=== PATIENT | male | born 1940 | race Caucasian/White ===

== ENCOUNTER 2018-06-04 11:13 | Outpatient (CLI) | payer MEDICARE ==
--- NOTE | 2018-06-04 15:30 | XRAY Report ---
Reason: RT SHOULDER IMPINGEMENT,CERVICAL RADICULOPATHY Procedure Date: 06/04/2018 Accession Number: [id number] / [id number] Procedure: XR - Clavicle RT CPT Code: FULL RESULT: EXAM: RIGHT CLAVICLE RADIOGRAPHY EXAM DATE: 06/04/2018 12:36 PM. CLINICAL HISTORY: Right shoulder impingement, cervical radiculopathy. COMPARISON: 06/13/2009 10:50 AM. TECHNIQUE: 2 views. FINDINGS: Degenerative changes of the acromioclavicular joint are similar to prior. The coracoclavicular interval is preserved. Projecting over the supraspinatus region in the subacromial bursa is a new well-rounded calcific density measuring up to 0.9 cm. IMPRESSION: Interval development of calcification in the subacromial bursa/supraspinatus region. RADIA
--- NOTE | 2018-06-04 15:30 | XRAY Report ---
Reason: RT SHOULDER IMPINGEMENT,CERVICAL RADICULOPATHY Procedure Date: 06/04/2018 Accession Number: [id number] / [id number] Procedure: XR - Cervical Spine 2 View CPT Code: FULL RESULT: EXAM: CERVICAL SPINE RADIOGRAPHY EXAM DATE: 06/04/2018 12:36 PM. CLINICAL HISTORY: Right shoulder impingement, cervical radiculopathy. COMPARISONS: None. TECHNIQUE: 3 views. FINDINGS: Alignment: Normal. No spondylolisthesis or scoliosis. Bones: The cervical vertebral bodies and posterior elements are well visualized from the skull base through C7-T1. No fractures or bone lesions. Disks: There is multilevel loss of disk space height which is most pronounced at C5-C6 and C6-C7 where there is osteophytosis. Facets: Multilevel facet disease in the lower cervical spine is mild. Soft Tissues: Normal. No prevertebral soft tissue swelling. The visualized lung apices are clear. IMPRESSION: Multilevel degenerative changes as described. RADIA
--- NOTE | 2018-06-05 16:23 | XRAY Report ---
Reason: RT SHOULDER IMPINGEMENT,CERVICAL RADICULOPATHY Procedure Date: 06/04/2018 Accession Number: [id number] / [id number] Procedure: XR - Shoulder 2 View RT CPT Code: FULL RESULT: EXAM: RIGHT SHOULDER RADIOGRAPHY EXAM DATE: 06/04/2018 12:36 PM. CLINICAL HISTORY: Right shoulder impingement, cervical radiculopathy. COMPARISON: None. TECHNIQUE: 3 views. FINDINGS: Bones: No fracture or bone lesion. Joints: Degenerative changes of the acromioclavicular joint are noted. Soft tissues: The visualized hemithorax is unremarkable. No soft tissue swelling. IMPRESSION: Calcific density projecting in the region of the subacromial bursa. RADIA
== END 2018-06-04 11:14 | disposition home or self-care (01) ==
LOC: DI 11:13
PROVIDERS: ATTEND Chiropractor
DX: M75.41 Impingement syndrome of right shoulder (principal); M75.31 Calcific tendinitis of right shoulder; M50.10 Cervical disc disorder with radiculopathy, unspecified cervical region; M25.78 Osteophyte, vertebrae
CPT/HCPCS: 72040

== ENCOUNTER 2018-07-15 13:05 | Outpatient (CLI) | payer MEDICARE ==
[2018-07-15 19:46] LABS: PSA FREE 1.61 ng/mL (0.16-2.81)
[2018-07-15 19:47] LABS: PSA TOTAL 7.37 ng/mL (0.000-2.000)
== END 2018-07-15 13:06 | disposition home or self-care (01) ==
LOC: LAB.N 13:05
PROVIDERS: ATTEND Physician Assistant Medical
DX: R97.20 Elevated prostate specific antigen [PSA] (principal)
CPT/HCPCS: 36415; 84153; 84154

== ENCOUNTER 2018-11-12 11:53 | Outpatient (CLI) | payer MEDICARE ==
--- NOTE | 2018-11-16 06:17 | XRAY Report ---
Reason: chronic cough Procedure Date: 11/12/2018 Accession Number: [id number] / [id number] Procedure: XRN - Chest 2 View X-Ray CPT Code: 42456 FULL RESULT: EXAM: CHEST RADIOGRAPHY EXAM DATE: 11/12/2018 12:17 PM. CLINICAL HISTORY: Chronic cough. COMPARISON: 06/13/2009 10:50 AM. TECHNIQUE: 2 views. FINDINGS: Lungs/Pleura: No focal opacities evident. No pleural effusion. No pneumothorax. Normal volumes. Mediastinum: Normal heart size. There is thoracic aortic tortuosity. Other: There are bridging osteophytes of the thoracic spine. IMPRESSION: No acute intrathoracic plain film abnormality. RADIA
== END 2018-11-12 11:54 | disposition home or self-care (01) ==
LOC: DI.N 11:53
PROVIDERS: ATTEND Physician Assistant Medical
DX: R05 Cough (principal)
CPT/HCPCS: 71046

== ENCOUNTER 2018-11-13 08:00 | Outpatient (CLI) | payer MEDICARE ==
[2018-11-13 13:08] LABS: BASOPHILS # (AUTO) 0.1 10^3/uL (0.0-0.1); BASOPHILS % (AUTO) 1.1 %; EOSINOPHILS # (AUTO) 0.2 10^3/uL (0.0-0.7); EOSINOPHILS % (AUTO) 3.6 %; HGB - HEMOGLOBIN 14.6 g/dL (14.0-18.0); LYMPHOCYTES # (AUTO) 1.9 10^3/uL (1.5-3.5); LYMPHOCYTES % (AUTO) 35.8 %; MEAN CORPUSCULAR HEMOGLOBIN 31.2 pg (27.0-31.0); MEAN CORPUSCULAR VOLUME 91.6 fL (80.0-94.0); MEAN PLATELET VOLUME 8.4 fL (7.4-11.4); MONOCYTES # (AUTO) 0.5 10^3/uL (0.0-1.0); MONOCYTES % (AUTO) 8.8 %; NEUTROPHILS # (AUTO) 2.8 10^3/uL (1.5-6.6); NEUTROPHILS % (AUTO) 50.7 %; PLT - PLATELET COUNT 234 10^3/uL (130-450); RED BLOOD COUNT 4.69 10^6/uL (4.70-6.10); RED CELL DISTRIBUTION WIDTH 13.4 % (12.0-15.0); WHITE BLOOD COUNT 5.5 x10^3/uL (4.8-10.8)
[2018-11-13 13:18] LABS: BUN - BLOOD UREA NITROGEN 19 mg/dL (6-20); CALCIUM 8.9 mg/dL (8.5-10.3); CARBON DIOXIDE - CO2 28 mmol/L (21-32); CHLORIDE 104 mmol/L (101-111); CHOL/HDL RATIO 5.1 (<5.0); CHOLESTEROL 216 mg/dL; CREATININE 0.7 mg/dL (0.6-1.2); GFR - MDRD 110 (>89); GLUCOSE 101 mg/dL (70-100); HDL CHOLESTEROL 42 mg/dL; LDL CHOLESTEROL,CALCULATED 132 mg/dL; LDL/HDL RATIO 3.1 (<3.6); PSA FREE 1.03 ng/mL (0.16-2.81); PSA TOTAL 5.91 ng/mL (0.000-2.000); SODIUM 139 mmol/L (135-145); VLDL CHOLESTEROL 42 mg/dL
== END 2018-11-13 23:59 | disposition home or self-care (01) ==
LOC: LAB.N 08:00
PROVIDERS: ATTEND Physician Assistant Medical
DX: Z00.00 Encounter for general adult medical examination without abnormal findings (principal); E78.5 Hyperlipidemia, unspecified; R97.20 Elevated prostate specific antigen [PSA]; E78.00 Pure hypercholesterolemia, unspecified
CPT/HCPCS: 36415; 80048; 80061; 83721; 84153; 84154; 85025

== ENCOUNTER 2019-08-13 08:28 | Outpatient (CLI) | payer MEDICARE ==
--- NOTE | 2019-08-13 11:28 | XRAY Report ---
Reason: SHOULDER JOINT PAIN, RIGHT Procedure Date: 08/13/2019 Accession Number: [id number] / [id number] Procedure: XRN - Shoulder 3 View RT CPT Code: Final Report FULL RESULT: EXAM: RIGHT SHOULDER RADIOGRAPHY EXAM DATE: 08/13/2019 08:48 AM HISTORY: SHOULDER JOINT PAIN, RIGHT COMPARISON: 06/04/2018 TECHNIQUE: 3 Views FINDINGS: Glenohumeral Joint: Moderate inferior humeral spurring. Mild joint space narrowing. Persistent approximately 5 x 10 mm ossific fragment superior to the humeral head which may be a loose body in the joint. Also consider calcific tendinopathy of the rotator cuff. AC Joint: Moderate degenerative arthritis with spurring and articular surface irregularity. No acute fracture. No dislocation. Unremarkable soft tissues. IMPRESSION: Degenerative changes as noted. Probable loose body in the joint. No significant change from prior. RADIA
== END 2019-08-13 08:29 | disposition home or self-care (01) ==
LOC: DI.N 08:28
PROVIDERS: ATTEND Family Medicine
DX: M19.011 Primary osteoarthritis, right shoulder (principal)

== ENCOUNTER 2020-06-12 12:42 | Emergency (ER) | payer MEDICARE ==
[2020-06-12] MEDS ORDERED: IOVERSOL 320 100 ML VIAL IVP ONE ×2 (13:19→18:17)
[2020-06-12 13:23] LABS: BASOPHILS % (AUTO) 0.3 %; EOSINOPHILS % (AUTO) 0.6 %; LYMPHOCYTES # (AUTO) 1.9 10^3/uL (1.5-3.5); LYMPHOCYTES % (AUTO) 29.4 %; MEAN CORPUSCULAR HEMOGLOBIN 30.8 pg (27.0-31.0); MEAN CORPUSCULAR HGB CONC 34.2 g/dL (32.0-36.0); MEAN CORPUSCULAR VOLUME 89.9 fL (80.0-94.0); MEAN PLATELET VOLUME 9.4 fL (7.4-11.4); MONOCYTES # (AUTO) 0.5 10^3/uL (0.0-1.0); MONOCYTES % (AUTO) 8.5 %; NEUTROPHILS # (AUTO) 3.9 10^3/uL (1.5-6.6); NEUTROPHILS % (AUTO) 60.9 %; PLT - PLATELET COUNT 250 10^3/uL (130-450); RED BLOOD COUNT 4.87 10^6/uL (4.70-6.10); WHITE BLOOD COUNT 6.4 x10^3/uL (4.8-10.8)
--- NOTE | 2020-06-12 13:30 | ED Physician Documentation ---
History of Present Illness - Stated complaint Stated Complaint: BODY PX/ILL FEELING - Chief complaint Chief Complaint: General - History obtained from History obtained from: Patient, Family - History of Present Illness Timing: Other (1 month) Pain level max: 10 Pain level now: 10 - Additonal information Additional information: 79-year-old male presents to the emergency department stating that he has had right lower quadrant abdominal pain for the past month. Worse with movement, better with rest. No vomiting or constipation. Did have diarrhea 3 days ago. No fevers. No chills. Review of Systems Ten Systems: 10 systems reviewed and negative Constitutional: denies: Fever, Chills Nose: denies: Rhinorrhea / runny nose, Congestion Throat: denies: Sore throat Cardiac: denies: Chest pain / pressure Respiratory: denies: Cough GI: denies: Nausea, Vomiting, Diarrhea Skin: denies: Rash Musculoskeletal: denies: Neck pain, Back pain Neurologic: denies: Headache PD PAST MEDICAL HISTORY - Past Medical History Past Medical History: Yes Cardiovascular: None Respiratory: None Endocrine/Autoimmune: None GI: None : Benign prostate hypertrophy HEENT: Glaucoma, Chronic sinusitis, Other Psych: None Musculoskeletal: Osteoarthritis Derm: None - Past Surgical History General: Colonoscopy - Present Medications Home Medications: Ambulatory Orders Medication Instructions Recorded Confirmed Finasteride 5 mg PO DAILY 01/18/16 02/22/16 Latanoprost 0.005% Ophth Drops 1 drops OPTH QPM 01/18/16 02/22/16 [Xalatan Ophth Drops] Multivit-Min/Iron Fum/Folic AC 1 ea PO DAILY 02/21/16 02/21/16 [Ufqtr-Eamvfiz-Opdjuawc Tablet] Cephalexin [Keflex] 500 mg PO Q6H #28 capsule 06/12/20 - Allergies Allergies/Adverse Reactions: Allergies Allergy/AdvReac Type Severity Reaction Status Date / Time No Known Drug Allergies Allergy Verified 06/12/20 12:50 - Social History Does the pt smoke?: No Smoking Status: Never smoker PD ED PE NORMAL - Vitals Vital signs reviewed: Yes - General General: Alert and oriented X 3, No acute distress - HEENT HEENT: Moist mucous membranes - Neck Neck: Supple, no meningeal sign - Cardiac Cardiac: RRR, Strong equal pulses - Respiratory Respiratory: No respiratory distress, Clear bilaterally - Abdomen Abdomen: Soft, Non distended, Other (Mild tenderness to palpation right lower quadrant without peritoneal signs) - Back Back: No CVA TTP, No spinal TTP - Derm Derm: Warm and dry - Extremities Extremities: No edema - Neuro Neuro: Alert and oriented X 3 Results - Vitals Vitals: Vital Signs - 24 hr 06/12/20 06/12/20 12:50 15:08 Temperature 36.5 C Heart Rate 76 64 Respiratory 16 14 Rate Blood Pressure 139/84 H 126/65 O2 Saturation 96 98 Oxygen O2 Source Room air - Labs Labs: Laboratory Tests 06/12/20 06/12/20 06/12/20 13:06 13:06 14:00 WBC 6.4 RBC 4.87 Hgb 15.0 Hct 43.8 MCV 89.9 MCH 30.8 MCHC 34.2 RDW 13.0 Plt Count 250 MPV 9.4 Neut # (Auto) 3.9 Lymph # (Auto) 1.9 Ness # (Auto) 0.5 Eos # (Auto) 0.0 Baso # (Auto) 0.0 Absolute Nucleated RBC 0.00 Nucleated RBC % 0.0 Sodium 138 Potassium 4.1 Chloride 103 Carbon Dioxide 24 Anion Gap 11.0 BUN 15 Creatinine 0.8 Estimated GFR (MDRD) 94 Glucose 102 H Calcium 9.2 Total Bilirubin 0.9 AST 22 ALT 22 Alkaline Phosphatase 49 Total Protein 7.4 Albumin 4.3 Globulin 3.1 Albumin/Globulin Ratio 1.4 Lipase 35 Urine Color YELLOW Urine Clarity CLEAR Urine pH 6.0 Ur Specific [place] 1.020 Urine Protein NEGATIVE Urine Glucose (UA) NEGATIVE Urine Ketones 15 H Urine Occult Blood NEGATIVE Urine Nitrite NEGATIVE Urine Bilirubin NEGATIVE Urine Urobilinogen 0.2 (NORMAL) Ur Leukocyte Esterase SMALL H Urine RBC None Seen Urine WBC 6-10 H Ur Squamous Epith Cells RARE Squamous Urine Bacteria Rare Ur Microscopic Review INDICATED Urine Culture Comments INDICATED - Rads (name of study) CT abd/pelvis Radiology: Prelim report reviewed, EMP read contemporaneously, See rad report PD MEDICAL DECISION MAKING - ED course Complexity details: reviewed results, re-evaluated patient, considered differential, d/w patient, d/w family ED course: Patient with abdominal pain and generally feeling unwell. He does have a UTI and we will treat him for this. He also has a mass in the tail of his pancreas and possible masses in his liver. He will need further evaluation with his doctor for this. Patient is well-appearing, nontoxic. Afebrile. No significant lab abnormalities. Patient counseled regarding signs and symptoms for which I believe and urgent re-evaluation would be necessary. Patient with good understanding of and agreement to plan and is comfortable going home at this time This document was made in part using voice recognition software. While efforts are made to proofread this document, sound alike and grammatical errors may occur. 1. Normal appendix. No bowel obstruction. No free fluid of free air. Colonic diverticulosis without evidence of acute diverticulitis. Small hiatal hernia. 2. Ill-defined hypodense lobulated lesion involving pancreatic tail measures 2.5 x 3.4 x 2.9 cm in size with suggestion of heterogeneous enhancement concerning for malignant process involving pancreatic tail. 3. 2 hyperenhancing lesions involving left and right hepatic lobe measures 1.2 cm in size which could represent atypical hemangioma. Liver metastasis cannot be excluded given the finding in pancreas. Departure - Departure Disposition: Home, Self Care Clinical Impression: Mass of pancreas UTI (urinary tract infection) Qualifiers: Urinary tract infection type: acute cystitis Hematuria presence: without hematuria Qualified Code(s): N30.00 - Acute cystitis without hematuria Condition: Good Instructions: ED UTI Cystitis Male Follow-Up: LANCE RAGLAND MD [Primary Care Provider] - Within 3 Days Prescriptions: Cephalexin [Keflex] 500 mg PO Q6H #28 capsule Comments: Take all antibiotics until gone. You will need further follow-up with your doctor regarding the mass in the pancreas and the potential masses in the liver. Call your doctor tomorrow to make an appointment. CT RESULTS: IMPRESSION: 1. Normal appendix. No bowel obstruction. No free fluid of free air. Colonic diverticulosis without evidence of acute diverticulitis. Small hiatal hernia. 2. Ill-defined hypodense lobulated lesion involving pancreatic tail measures 2.5 x 3.4 x 2.9 cm in size with suggestion of heterogeneous enhancement concerning for malignant process involving pancreatic tail. 3. 2 hyperenhancing lesions involving left and right hepatic lobe measures 1.2 cm in size which could represent atypical hemangioma. Liver metastasis cannot be excluded given the finding in pancreas. Discharge Date/Time: 06/12/20 15:33
[2020-06-12 13:44] LABS: ALBUMIN 4.3 g/dL (3.2-5.5); ALBUMIN/GLOBULIN RATIO 1.4 (1.0-2.2); BILIRUBIN,TOTAL 0.9 mg/dL (0.2-1.0); CALCIUM 9.2 mg/dL (8.5-10.3); CREATININE 0.8 mg/dL (0.6-1.2); TOTAL PROTEIN 7.4 g/dL (6.7-8.2)
[2020-06-12 14:14] LABS: BILIRUBIN,URINE NEGATIVE (NEGATIVE); GLUCOSE, URINE (UA) NEGATIVE (NEGATIVE); KETONES,URINE (UA) 15 mg/dL (NEGATIVE); LEUKOCYTE ESTERASE, URINE SMALL (NEGATIVE); NITRITE,URINE NEGATIVE (NEGATIVE); OCCULT BLOOD,URINE NEGATIVE (NEGATIVE); PROTEIN,URINE NEGATIVE (NEGATIVE); UROBILINOGEN,URINE 0.2 (NORMAL) E.U./dL (NORMAL)
[2020-06-12 14:31] LABS: CLARITY,URINE CLEAR (CLEAR)
--- NOTE | 2020-06-12 14:32 | CT Report ---
PROCEDURE: Abdomen/Pelvis W INDICATIONS: RLQ Abdominal pain, appendicitis suspected CONTRAST: IV CONTRAST: Optiray 320 ml: 100 PO CONTRAST: *NO PO CONTRAST TECHNIQUE: After the administration of IV contrast, 5 mm thick sections acquired from the diaphragms to the symp hysis. 5 mm thick coronal and sagittal reformats were acquired. For radiation dose reduction, the f ollowing was used: automated exposure control, adjustment of mA and/or kV according to patient size. COMPARISON: None. FINDINGS: Image quality: Excellent. ABDOMEN: Lung bases: Linear scarring/atelectasis at bilateral lung bases are seen. Heart size is normal. Solid organs: Liver and spleen are normal in size. 2 hyperenhancing nodules are noted in left and ri ght hepatic dome and measures 1.2 cm in size. Gallbladder is within normal limits. Biliary system is non dilated. Ill-defined lobulated hypodense structure involving pancreatic tail is seen and measure s up to 2.5 x 3.4 x 2.9 cm in size. There is suggestion of heterogeneous enhancement within this stru cture. No peripancreatic fluid collection is seen. No adrenal nodules. Kidneys demonstrate normal si ze and enhancement, without hydronephrosis. Peritoneum and bowel: There is no evidence of bowel obstruction. No gross abnormal bowel wall thicken ing or mesenteric fat stranding. Appendix is visualized and is within normal limits. Descending colon and sigmoid colon diverticulosis is seen, no CT evidence of acute diverticulitis. No free fluid of f ree air. Small hiatal hernia is seen. Nodes and vessels: No retroperitoneal or mesenteric adenopathy by size criteria. Aorta and inferior vena cava are normal in size. Miscellaneous: No ventral hernias. PELVIS: Genitourinary: Bladder wall thickness is normal. Markedly enlarged prostate gland with significant mass effect on floor of urinary bladder is seen. Miscellaneous: No inguinal hernias or adenopathy. Bones: No suspicious bony lesions. No vertebral body compression fractures. Degenerative endplate c hanges throughout lower thoracic and lumbar spine is seen. IMPRESSION: 1. Normal appendix. No bowel obstruction. No free fluid of free air. Colonic diverticulosis without e vidence of acute diverticulitis. Small hiatal hernia. 2. Ill-defined hypodense lobulated lesion involving pancreatic tail measures 2.5 x 3.4 x 2.9 cm in si ze with suggestion of heterogeneous enhancement concerning for malignant process involving pancreatic tail. 3. 2 hyperenhancing lesions involving left and right hepatic lobe measures 1.2 cm in size which could represent atypical hemangioma. Liver metastasis cannot be excluded given the finding in pancreas. Reviewed by: Sudeep Elizalde MD on 06/12/2020 1:31 PM [facility]I Approved by: Sudeep Elizalde MD on 06/12/2020 1:31 PM [facility] Station ID: [id number]
[2020-06-12 14:57] LABS: RBC,URINE None Seen /HPF (0-5); SQUAMOUS EPITHELIAL CELL,UR RARE Squamous (<= Few)
[2020-06-12 14:58] LABS: BACTERIA,URINE Rare /HPF (None Seen)
[2020-06-12 15:09] VITALS: BP 126/65
[2020-06-12] MEDS ORDERED: cephALEXin 250 MG CAPSULE PO STA (15:13)
== END 2020-06-12 15:33 | disposition home or self-care (01) ==
LOC: ED 12:42
DX: N30.00 Acute cystitis without hematuria (principal); K86.89 Other specified diseases of pancreas; K76.89 Other specified diseases of liver; K44.9 Diaphragmatic hernia without obstruction or gangrene
CPT/HCPCS: 36415; 74177; 80053; 81001; 83690; 85025; 87086; 99284; A9270; Q9967; 81003

== ENCOUNTER 2020-12-21 14:45 | Outpatient (CLI) | payer MEDICARE ==
[2020-12-21 18:51] LABS: BASOPHILS % (AUTO) 0.7 %; EOSINOPHILS # (AUTO) 0.1 10^3/uL (0.0-0.7); EOSINOPHILS % (AUTO) 1.2 %; HGB - HEMOGLOBIN 14.1 g/dL (14.0-18.0); MEAN CORPUSCULAR HEMOGLOBIN 30.9 pg (27.0-31.0); MEAN CORPUSCULAR HGB CONC 32.8 g/dL (32.0-36.0); MEAN CORPUSCULAR VOLUME 94.1 fL (80.0-94.0); MEAN PLATELET VOLUME 10.5 fL (7.4-11.4); MONOCYTES # (AUTO) 0.5 10^3/uL (0.0-1.0); NEUTROPHILS # (AUTO) 3.2 10^3/uL (1.5-6.6); NEUTROPHILS % (AUTO) 55.8 %; PLT - PLATELET COUNT 270 10^3/uL (130-450); RED BLOOD COUNT 4.57 10^6/uL (4.70-6.10); RED CELL DISTRIBUTION WIDTH 13.4 % (12.0-15.0); WHITE BLOOD COUNT 5.7 x10^3/uL (4.8-10.8)
[2020-12-21 18:57] LABS: BILIRUBIN,URINE NEGATIVE (NEGATIVE); GLUCOSE, URINE (UA) NEGATIVE (NEGATIVE); KETONES,URINE (UA) NEGATIVE (NEGATIVE); LEUKOCYTE ESTERASE, URINE NEGATIVE (NEGATIVE); NITRITE,URINE NEGATIVE (NEGATIVE); OCCULT BLOOD,URINE NEGATIVE (NEGATIVE); PROTEIN,URINE NEGATIVE (NEGATIVE); UROBILINOGEN,URINE 0.2 (NORMAL) E.U./dL (NORMAL)
[2020-12-21 19:00] LABS: CLARITY,URINE CLEAR (CLEAR)
[2020-12-21 19:39] LABS: BACTERIA,URINE None Seen /HPF (None Seen); RBC,URINE 0-5 /HPF (0-5); SQUAMOUS EPITHELIAL CELL,UR RARE Squamous (<= Few); WBC,URINE 0-3 /HPF (0-3)
[2020-12-21 21:19] LABS: AMYLASE 75 U/L (28-100); LIPASE 32 U/L (22-51)
[2020-12-22 08:09] LABS: ALBUMIN 4.3 g/dL (3.2-5.5); ALBUMIN/GLOBULIN RATIO 1.5 (1.0-2.2); BILIRUBIN,TOTAL 0.9 mg/dL (0.2-1.0); CREATININE 0.8 mg/dL (0.6-1.2); POTASSIUM 4.1 mmol/L (3.5-5.0); TOTAL PROTEIN 7.1 g/dL (6.7-8.2)
== END 2020-12-21 23:59 | disposition home or self-care (01) ==
LOC: LAB.WCP 14:45
PROVIDERS: ATTEND Internal Medicine
DX: R10.32 Left lower quadrant pain (principal); R07.89 Other chest pain
CPT/HCPCS: 36415; 80053; 81001; 82150; 83690; 85025; 85379; 87086

== ENCOUNTER 2020-12-27 13:47 | Outpatient (CLI) | payer MEDICARE ==
[2020-12-27] MEDS ORDERED: IOPAMIDOL-300 100 ML VIAL ONE (14:51)
[2020-12-27] MEDS ORDERED: IOPAMIDOL-300 50 ML VIAL ONE (14:51)
[2020-12-27] MEDS ORDERED: IOPAMIDOL-300 100 ML VIAL IVP ONE (17:04)
[2020-12-27] MEDS ORDERED: IOPAMIDOL-300 50 ML VIAL PO ONE (17:04)
--- NOTE | 2020-12-27 18:47 | CT Report ---
PROCEDURE: Abdomen/Pelvis W INDICATIONS: LLQ ABD PAIN CONTRAST: IV CONTRAST: Isovue 300 ml: 100 PO CONTRAST: Isovue 300 ml50 TECHNIQUE: After the administration of contrast, 5 mm thick sections acquired from the diaphragms to the sym physis. 5 mm thick coronal and sagittal reformats were acquired. For radiation dose reduction, the following was used: automated exposure control, adjustment of mA and/or kV according to patient size . COMPARISON: June 12, 2020 FINDINGS: Lower thorax: The lung bases are clear. Heart size normal. Small hiatal hernia noted. Scarring noted at both lung bases, stable. Liver: 1.2 cm enhancing nodules in the right and left lobe again noted. The right hepatic nodule show s peripheral enhancement, and both are entirely unchanged from the prior. No new lesions. Liver shows diffusely decreased attenuation generally. Small subcentimeter cyst noted adjacent to the falciform ligament. Biliary system: No calcified cholelithiasis or pericholecystic inflammation No intra or extrahepati c bile duct dilatation. Pancreas: Cystic lesion again noted in the tail the pancreas protocol peripheral calcification. Curre nt measurements are 3.4 x 2.2 x 2.4 cm, similar to the prior. No new or additional lesions are presen t. Spleen: Normal in size and density. Adrenals: Normal morphology and density. Reproductive system: Enlarged prostate elevates the bladder floor measuring 6.4 x 6.6 x 7.8 cm overal l. Urinary system: Normal renal size and attenuation. No renal calculi, hydronephrosis, or solid mass p resent. Urinary bladder unremarkable. Small subcentimeter left renal cyst. Gastrointestinal system: The bowel appears unremarkable with no evidence of bowel obstruction or inf lammation. The stomach appears unremarkable. Appendix: No findings to suggest acute appendicitis. Normal appendix identified. Peritoneal spaces: No intra- or retroperitoneal adenopathy. No free air. No free fluid. Vasculature: The IVC, aorta and iliac vasculature are unremarkable. Musculoskeletal: Normal bone mineralization. No acute fractures. Abdominal wall intact without richardson dence of ventral or inguinal hernias. Mild degenerative disc disease and arthropathy noted involving the lower lumbar spine. IMPRESSION:? 1. 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 Prostatic hypertrophy, small hiatal hernia and other degenerative changes as above Reviewed by: Renny Jacobs MD on 12/27/2020 5:46 PM [facility] Approved by: Renny Jacobs MD on 12/27/2020 5:46 PM [facility] Station ID: [id number]
== END 2020-12-27 13:48 | disposition home or self-care (01) ==
LOC: DI 13:47
PROVIDERS: ATTEND Internal Medicine
DX: K86.2 Cyst of pancreas (principal); R16.0 Hepatomegaly, not elsewhere classified; N40.0 Benign prostatic hyperplasia without lower urinary tract symptoms; K44.9 Diaphragmatic hernia without obstruction or gangrene; M51.36 Other intervertebral disc degeneration, lumbar region; M47.816 Spondylosis without myelopathy or radiculopathy, lumbar region
CPT/HCPCS: 74177; Q9967

== ENCOUNTER 2021-01-04 06:43 | Emergency (ER) | payer MEDICARE ==
[2021-01-04] MEDS ORDERED: HYDROmorphone 1 MG/ML CARPUJECT IVP STA (07:18)
[2021-01-04] MEDS ORDERED: ONDANSETRON 4 MG/2 ML VIAL IVP STA (07:18)
[2021-01-04 07:23] LABS: BASOPHILS % (AUTO) 0.8 %; EOSINOPHILS # (AUTO) 0.1 10^3/uL (0.0-0.7); EOSINOPHILS % (AUTO) 1.2 %; HCT - HEMATOCRIT 42.1 % (42.0-52.0); HGB - HEMOGLOBIN 14.2 g/dL (14.0-18.0); LYMPHOCYTES # (AUTO) 2.2 10^3/uL (1.5-3.5); LYMPHOCYTES % (AUTO) 43.2 %; MEAN CORPUSCULAR HEMOGLOBIN 30.9 pg (27.0-31.0); MEAN CORPUSCULAR HGB CONC 33.7 g/dL (32.0-36.0); MEAN CORPUSCULAR VOLUME 91.5 fL (80.0-94.0); MEAN PLATELET VOLUME 9.8 fL (7.4-11.4); MONOCYTES # (AUTO) 0.4 10^3/uL (0.0-1.0); MONOCYTES % (AUTO) 8.5 %; NEUTROPHILS # (AUTO) 2.4 10^3/uL (1.5-6.6); NEUTROPHILS % (AUTO) 46.1 %; PLT - PLATELET COUNT 245 10^3/uL (130-450); RED CELL DISTRIBUTION WIDTH 13.2 % (12.0-15.0); WHITE BLOOD COUNT 5.2 x10^3/uL (4.8-10.8)
--- NOTE | 2021-01-04 07:27 | ED Physician Documentation ---
PD HPI ABD PAIN - Stated complaint Stated Complaint: SOA,L SIDE PX - Chief complaint Chief Complaint: Cardiac - History obtained from History obtained from: Patient, Family - History of Present Illness Timing - onset: How many weeks ago (2) Timing - duration: Weeks (2) Timing - details: Gradual onset, Still present Quality: Sharp, Pain Location: LUQ Radiation: Chest, Upper back Improved by: Laying still Worsened by: Moving, Position, Palpation. 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 During this period of time about 8 days ago he had a CT scan done of his abdomen pelvis which showed a stable appearing pancreatic mass. The patient has had an increase in his pain was up all night last night and he has come to the emergency department this morning seeking treatment. His accompanies him and would like this addressed. Review of Systems Constitutional: denies: Fever Eyes: denies: Decreased vision Ears: denies: Ear pain Nose: denies: Congestion Throat: denies: Sore throat Respiratory: denies: Cough GI: reports: Abdominal Pain. denies: Nausea, Vomiting, Constipation, Diarrhea : denies: Dysuria, Frequency Skin: denies: Rash Musculoskeletal: denies: Neck pain, Back pain, Extremity pain Neurologic: denies: Generalized weakness, Focal weakness, Numbness PD PAST MEDICAL HISTORY - Past Medical History Past Medical History: Yes Cardiovascular: None Respiratory: None Endocrine/Autoimmune: None GI: None : Benign prostate hypertrophy HEENT: Glaucoma, Chronic sinusitis, Other Psych: None Musculoskeletal: Osteoarthritis Derm: None - Past Surgical History Past Surgical History: Yes General: Colonoscopy - Present Medications Home Medications: Ambulatory Orders Medication Instructions Recorded Confirmed Finasteride 5 mg PO DAILY 01/18/16 01/04/21 Latanoprost 0.005% Ophth Drops 1 drops OPTH QPM 01/18/16 01/04/21 [Xalatan Ophth Drops] Multivit-Min/Iron Fum/Folic AC 1 ea PO DAILY 02/21/16 01/04/21 [Bqgmc-Vxnzemy-Bppuaifv Tablet] HYDROcod/ACETAM 5/325 [[place] 5/325] 1 - 2 tablet PO Q6H PRN #14 tablet 01/04/21 - Allergies Allergies/Adverse Reactions: Allergies Allergy/AdvReac Type Severity Reaction Status Date / Time No Known Drug Allergies Allergy Verified 01/04/21 07:06 - Social History Does the pt smoke?: No Smoking Status: Never smoker Does the pt drink ETOH?: No Does the pt have substance abuse?: No - Immunizations Immunizations: TDAP >10years/unknown - POLST Patient has POLST: No PD ED PE NORMAL - Vitals Vital signs reviewed: Yes (normal ) - General General: Alert and oriented X 3, Well developed/nourished, Other (80 y/o male appears to be in pain with grunting respirations ) - HEENT HEENT: Atraumatic, PERRL, EOMI - Neck Neck: Supple, no meningeal sign, No bony TTP - Cardiac Cardiac: RRR, No murmur - Respiratory Respiratory: No respiratory distress, Clear bilaterally - Abdomen Abdomen: Normal bowel sounds, Soft, Other (Left sided tenderness is general and upper. 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, No motor deficit, No sensory deficit, Normal speech Eye Opening: Spontaneous Motor: Obeys Commands Verbal: Oriented GCS Score: 15 - Psych Psych: Normal mood, Normal affect Results - Vitals Vitals: Vital Signs - 24 hr 01/04/21 01/04/21 01/04/21 06:45 06:54 07:07 Temperature 36.2 C L Heart Rate 67 79 Respiratory 20 17 Rate Blood Pressure 122/76 112/78 Blood Pressure 112/78 [Left] O2 Saturation 99 100 Oxygen O2 Source Room air - EKG (time done) 0653 Rhythm: NSR Intervals: Wide QRS Ischemia: Non specific changes Compare to prior EKG: Old EKG unavailable Computer interpretation: Agree with computer - Labs Labs: Laboratory Tests 01/04/21 01/04/21 01/04/21 07:00 07:00 07:00 WBC 5.2 RBC 4.60 L Hgb 14.2 Hct 42.1 MCV 91.5 MCH 30.9 MCHC 33.7 RDW 13.2 Plt Count 245 MPV 9.8 Neut # (Auto) 2.4 Lymph # (Auto) 2.2 Tucker # (Auto) 0.4 Eos # (Auto) 0.1 Baso # (Auto) 0.0 Absolute Nucleated RBC 0.00 Nucleated RBC % 0.0 Sodium 139 Potassium 3.9 Chloride 105 Carbon Dioxide 24 Anion Gap 10.0 BUN 14 Creatinine 0.9 Estimated GFR (MDRD) 82 L Glucose 118 H Calcium 9.2 Total Bilirubin 0.9 AST 23 ALT 19 Alkaline Phosphatase 46 Troponin I High Sens 4.2 Total Protein 7.1 Albumin 4.2 Globulin 2.9 Albumin/Globulin Ratio 1.4 Lipase 33 PD MEDICAL DECISION MAKING - ED course Complexity details: considered differential, d/w patient, d/w family ED course: 80-year-old male with a mass in the tail of his pancreas has had a drain previously with improvement in his pain he is now developed increasing pain over the last 2 weeks and likely needs to have this drained again. He now has imaging showing a an increasing size of this. He does have a hot stick man that he sees at [facility] in [place] and Dr. Alegre that he sees in [place]. I have spoken with Dr. Alegre and Dr. Bettencourt the hot stick man is preparing to call the patient to schedule another drainage. The patient has marked improvement in his pain with an injection of Dilaudid here in the emergency department. We will provide him with a short course of narcotic pain reliever. Departure - Departure Disposition: 01 Home, Self Care Clinical Impression: Mass of pancreas Condition: Stable Instructions: Abdominal Pain Follow-Up: Nicanor Alegre MD [Primary Care Provider] - Prescriptions: HYDROcod/ACETAM 5/325 [[place] 5/325] 1 - 2 tablet PO Q6H PRN #14 tablet PRN Reason: Pain Comments: Today it looks like on your imaging there has been a slight increase in the size of the pancreatic mass in the tail of the pancreas. This is likely the reason for your increase in pain and it looks like we were able to control your pain with some pain medication. Expect a telephone call from Dr. Bettencourt today about scheduling another drainage. In the meantime pain medication is available as needed.
[2021-01-04 07:28] LABS: ALBUMIN 4.2 g/dL (3.2-5.5); ALBUMIN/GLOBULIN RATIO 1.4 (1.0-2.2); BILIRUBIN,TOTAL 0.9 mg/dL (0.2-1.0); CALCIUM 9.2 mg/dL (8.5-10.3); CREATININE 0.9 mg/dL (0.6-1.2); POTASSIUM 3.9 mmol/L (3.5-5.0); TOTAL PROTEIN 7.1 g/dL (6.7-8.2)
[2021-01-04] MEDS ORDERED: IOPAMIDOL-300 100 ML VIAL ONE (07:33)
--- NOTE | 2021-01-04 08:14 | CT Report ---
PROCEDURE: Abdomen/Pelvis W INDICATIONS: pancreatic cyst worsening pain CONTRAST: IV CONTRAST: Isovue 300 ml: 100 PO CONTRAST: *NO PO CONTRAST TECHNIQUE: After the administration of IV contrast, 5 mm thick sections acquired from the diaphragms to the symp hysis. 5 mm thick coronal and sagittal reformats were acquired. For radiation dose reduction, the f ollowing was used: automated exposure control, adjustment of mA and/or kV according to patient size. COMPARISON: CT dated 12/27/2020 FINDINGS: Image quality: Excellent. ABDOMEN: Lung bases: Lung bases are clear. Heart size is normal. Solid organs: Liver and spleen are normal in size. Enhancing foci within the lateral segment left he patic lobe as well as the right/left hepatic lobe junction in the right hepatic lobe posteriorly are unchanged. Gallbladder is within normal limits Biliary system is non dilated. The low-density mass w ithin the pancreatic tail has increased slightly in size, currently measuring 40 mm diameter. No adre nal nodules. Kidneys demonstrate normal size and enhancement, without hydronephrosis. Peritoneum and bowel: Small hiatal hernia. Bowel loops demonstrate normal wall thickness and caliber . Normal appendix. No free fluid or air. Nodes and vessels: No retroperitoneal or mesenteric adenopathy by size criteria. Aorta and inferior vena cava are normal in size. Miscellaneous: No ventral hernias. PELVIS: Genitourinary: Bladder wall thickness is normal. Prostate enlargement. Miscellaneous: No inguinal hernias or adenopathy. Bones: No suspicious bony lesions. No vertebral body compression fractures. IMPRESSION: 1. Increasing pancreatic tail mass, suspicious for malignancy. 2. No significant change in indeterminate enhancing hepatic masses. Further assessment with liver pro tocol MRI is recommended. 3. Small hiatal hernia. 4. Normal appendix. 5. Prostate enlargement. Reviewed by: Robin Costa MD on 01/04/2021 8:12 AM PDT Approved by: Robin Costa MD on 01/04/2021 8:12 AM PDT Station ID: [id number]
[2021-01-04] MEDS ORDERED: IOPAMIDOL-300 100 ML VIAL IVP ONE (08:15)
--- NOTE | 2021-01-04 08:25 | XRAY Report ---
PROCEDURE: Chest 1 View X-Ray INDICATIONS: Chest pain TECHNIQUE: One view of the chest was acquired. COMPARISON: None FINDINGS: Surgical changes and devices: None. Lungs and pleura: No pleural effusions or pneumothorax. Lungs are clear. Mediastinum: Mediastinal contours appear normal. Heart size is normal. Bones and chest wall: No suspicious bony lesions. Overlying soft tissues appear unremarkable. IMPRESSION: No acute process. Concordant with preliminary interpretation. Reviewed by: Robin Costa MD on 01/04/2021 8:24 AM PDT Approved by: Robin Costa MD on 01/04/2021 8:24 AM PDT Station ID: [id number]
[2021-01-04 09:59] VITALS: BP 99/58
== END 2021-01-04 10:15 | disposition home or self-care (01) ==
LOC: ED 06:43
DX: K86.9 Disease of pancreas, unspecified (principal)
CPT/HCPCS: 36415; 71045; 74177; 80053; 83690; 84484; 85025; 93005; 96374; 96375; 99284; J1170; Q9967

== ENCOUNTER 2021-03-21 05:46 | Outpatient (CLI) | payer MEDICARE ==
[2021-03-21] MEDS ORDERED: IOPAMIDOL-300 100 ML VIAL ONE (06:54)
[2021-03-21] MEDS ORDERED: IOVERSOL 320 50 ML VIAL ONE (06:55)
[2021-03-21 07:28] LABS: CREATININE 0.9 mg/dL (0.6-1.2)
[2021-03-21] MEDS ORDERED: IOVERSOL 320 50 ML VIAL PO ONE (08:40)
[2021-03-21] MEDS ORDERED: IOPAMIDOL-300 100 ML VIAL IVP ONE (08:40)
--- NOTE | 2021-03-21 10:06 | CT Report ---
PROCEDURE: Abdomen/Pelvis W INDICATIONS: LLQ PAIN CONTRAST: IV CONTRAST: Isovue 300 ml: 100 PO CONTRAST: Optiray 320 ml50 TECHNIQUE: After the administration of IV and oral contrast, 5 mm thick sections acquired from the diaphragms to the symphysis. 5 mm thick coronal and sagittal reformats were acquired. For radiation dose reducti on, the following was used: automated exposure control, adjustment of mA and/or kV according to joe ent size. COMPARISON: 01/04/2021, 06/12/2020 FINDINGS: Image quality: Excellent. ABDOMEN: Lung bases: Vertical scarring at both lung bases, left worse than right. Posterior bilateral pleural plaquing. No effusions. Heart size is normal. Small hiatal hernia. Solid organs: 1.6 and 1.5 cm arterially enhancing lesions in the upper portion of left and right rhonda er lobes appear stable. There is vascular shunting adjacent to the left lobe lesion, also stable. No new liver findings. The spleen is normal size. Gallbladder, adrenal glands, and kidneys appear normal . Multilobulated cystic mass with peripheral enhancement in the tail of the spleen is present measuring 3.2 x 3.9 cm. Faint enhancing septations are seen. The remainder the pancreas is normal without duct al dilatation. Peritoneum and bowel: Transverse colon demonstrates mild diffuse long segment wall thickening and tra ce pericolonic hyperemia. Occasional sigmoid diverticula. There is a normal appendix. Small bowel loo ps appear normal. No free fluid or air. Nodes and vessels: No retroperitoneal or mesenteric adenopathy by size criteria. Aorta and inferior vena cava are normal in size. Miscellaneous: No ventral hernias. PELVIS: Genitourinary: Bladder wall is mildly diffusely thickened and there is a tiny diverticulum anteriorl y in the midline.. Prostatomegaly. Miscellaneous: No inguinal hernias or adenopathy. Bones: No suspicious bony lesions. Degenerative disc height loss in the lower lumbar spine. No vert ebral body compression fractures. IMPRESSION: 1. Stable size of multilobulated pancreatic tail cystic mass. 2. Stable arterially enhancing liver lesions. 3. Findings suggest mild acute transverse colitis. This is likely inflammatory or infectious. This ca n be seen in cathartic use. 4. Prostatomegaly. Reviewed by: Sultana Hodges MD on 03/21/2021 10:04 AM PDT Approved by: Sultana Hodges MD on 03/21/2021 10:04 AM PDT Station ID: [id number]
== END 2021-03-21 05:47 | disposition home or self-care (01) ==
LOC: DI 05:46
PROVIDERS: ATTEND Surgery
DX: R10.32 Left lower quadrant pain (principal); K86.2 Cyst of pancreas; K76.9 Liver disease, unspecified; N40.0 Benign prostatic hyperplasia without lower urinary tract symptoms
CPT/HCPCS: 36415; 74177; 82565; Q9967

== ENCOUNTER 2021-03-22 10:51 | Outpatient (CLI) | payer MEDICARE ==
[2021-03-22 11:33] LABS: BASOPHILS % (AUTO) 0.7 %; EOSINOPHILS # (AUTO) 0.1 10^3/uL (0.0-0.7); EOSINOPHILS % (AUTO) 1.2 %; HCT - HEMATOCRIT 41.8 % (42.0-52.0); LYMPHOCYTES # (AUTO) 2.3 10^3/uL (1.5-3.5); LYMPHOCYTES % (AUTO) 38.9 %; MEAN CORPUSCULAR HEMOGLOBIN 30.8 pg (27.0-31.0); MEAN CORPUSCULAR HGB CONC 33.5 g/dL (32.0-36.0); MEAN CORPUSCULAR VOLUME 91.9 fL (80.0-94.0); MEAN PLATELET VOLUME 9.2 fL (7.4-11.4); MONOCYTES # (AUTO) 0.5 10^3/uL (0.0-1.0); MONOCYTES % (AUTO) 7.7 %; NEUTROPHILS % (AUTO) 51.2 %; PLT - PLATELET COUNT 233 10^3/uL (130-450); RED BLOOD COUNT 4.55 10^6/uL (4.70-6.10); RED CELL DISTRIBUTION WIDTH 12.7 % (12.0-15.0); WHITE BLOOD COUNT 5.8 x10^3/uL (4.8-10.8)
== END 2021-03-22 10:52 | disposition home or self-care (01) ==
LOC: LAB 10:51
PROVIDERS: ATTEND Surgery
DX: R68.89 Other general symptoms and signs (principal); R79.82 Elevated C-reactive protein (CRP); B82.9 Intestinal parasitism, unspecified; A04.71 Enterocolitis due to Clostridium difficile, recurrent
CPT/HCPCS: 36415; 81599; 85025; 86140; 87177; 87209; 87493

== ENCOUNTER 2021-03-23 07:55 | Outpatient (CLI) | payer MEDICARE | END 2021-03-23 07:56 | disposition home or self-care (01) | LOC: LAB.R 07:55 | PROVIDERS: ATTEND Surgery | DX: B82.9 Intestinal parasitism, unspecified (principal); A04.71 Enterocolitis due to Clostridium difficile, recurrent | CPT/HCPCS: 81599; 87045; 87177; 87209; 87427; 87449 ==

== ENCOUNTER 2021-05-16 07:23 | Day surgery (SDC) | payer MEDICARE ==
[2021-05-16] MEDS ORDERED: LACTATED RINGERS 1,000 ML IV ONE (07:54)
--- NOTE | 2021-05-16 08:38 | ANESTHESIA ---
Pre-Anesthesia VS, & Labs - Diagnosis screening exam - Procedure colonoscopy Vital Signs: Temp Pulse Resp BP Pulse Ox 36.8 C 74 16 111/73 97 05/16/21 08:30 05/16/21 08:30 05/16/21 08:30 05/16/21 08:30 05/16/21 08:30 Height: 5 ft 11 in Weight (kg): 81.9 kg Body Mass Index: 25.2 BMI Classification: Overweight - NPO >8 hours Home Medications and Allergies Finasteride 5 mg PO DAILY 01/18/16 Latanoprost 0.005% Ophth Drops [Xalatan Ophth Drops] 1 drops OPTH QPM 01/18/16 Multivit-Min/Iron Fum/Folic AC [Hxivl-Qulbaiu-Dzkozvfl Tablet] 1 ea PO DAILY 02/21/16 Allergies/Adverse Reactions: Allergies Allergy/AdvReac Type Severity Reaction Status Date / Time No Known Drug Allergies Allergy Verified 01/04/21 07:06 Anes History & Medical History - Anesthetic History Anesthesia Complications: reports: No previous complications - Medical History Cardiovascular: reports: None Pulmonary: reports: None Gastrointestinal: reports: Other (pancreatic mass biopsy) Urinary: reports: Benign prostate hypertrophy Neuro: reports: None Musculoskeletal: reports: Osteoarthritis Endocrine/Autoimmune: reports: None Blood Disorders: reports: None Skin: reports: None Smoking Status: Former smoker (quit at age 28) Psychosocial: reports: No issues indicated History of Cancer?: Yes (basal cell ) - Surgical History General: reports: Colonoscopy Eyes Ears Nose Throat (EENT): reports: Tonsil/Adenoidectomy Exam General: Alert, Oriented x3, Cooperative, No acute distress Dental: WNL Mouth Openin Fingerbreadth Neck Mobility: Normal Mallampati classification: III Thyromental Distance: 4-6 cm Mental/Cognitive Status: Alert/Oriented X3, Normal for patient Plan Anesthesia Type: Total IV Consent for Procedure(s) Verified and Reviewed: Yes Code Status: Attempt Resuscitation ASA classification: 2-Mild systemic disease Is this case an emergency?: No
[2021-05-16] MEDS ORDERED: PROPOFOL 200 MG/20 ML VIAL IVP ONE (08:48)
[2021-05-16] MEDS ORDERED: fentaNYL 100 MCG/2 ML VIAL ONE (08:48)
[2021-05-16] MEDS ORDERED: LACTATED RINGERS 600 ML IV ONE (09:11)
[2021-05-16 09:31] VITALS: BP 107/60
== END 2021-05-16 07:24 | disposition home or self-care (01) ==
LOC: SDS 07:23
PROVIDERS: ATTEND Surgery
DX: R10.12 Left upper quadrant pain (principal); R93.3 Abnormal findings on diagnostic imaging of other parts of digestive tract; K57.30 Diverticulosis of large intestine without perforation or abscess without bleeding; K64.8 Other hemorrhoids; N40.0 Benign prostatic hyperplasia without lower urinary tract symptoms; Z87.891 Personal history of nicotine dependence
CPT/HCPCS: 45378; J7120

== ENCOUNTER 2021-05-23 07:09 | Outpatient (CLI) | payer MEDICARE ==
--- NOTE | 2021-05-23 16:54 | XRAY Report ---
PROCEDURE: Thoracic Spine 3 View INDICATIONS: DORSALGIA, CHEST DISCOMFORT TECHNIQUE: 3 views of the thoracic spine were acquired. COMPARISON: None. FINDINGS: Bones: No fractures or dislocations. No suspicious bony lesions. 12 pairs of ribs are noted, and a ppear intact where visualized. Moderate multilevel disc degeneration. Multilevel flowing syndesmophy caroline present and there is calcification of the anterior longitudinal ligament. Soft tissues: No paravertebral stripe thickening. IMPRESSION: Multilevel disc degeneration. Multilevel flowing syndesmophytes and calcification of the anterior longitudinal ligament which can b e associated with ankylosing spondylitis. Reviewed by: ANDRADE Avina on 05/23/2021 4:52 PM PDT Approved by: Shawanda Choudhary MD on 05/23/2021 4:52 PM PDT Station ID: [id number]
--- NOTE | 2021-05-23 16:54 | XRAY Report ---
PROCEDURE: Lumbar Spine Complete INDICATIONS: LUMBAR RADICULOPATHY TECHNIQUE: 5 views of the lumbar spine were acquired. COMPARISON: None FINDINGS: Bones: 5 [id number] vertebrae are present. Trace multilevel retrolisthesis. Multilevel disc deg eneration, most notably and moderate to severe at the L5-S1 level. Moderate L4-L5 and L5-S1 facet nirmal nt arthropathy. No vertebral body compression fractures. No suspicious bony lesions. Soft tissues: Overlying bowel gas pattern is normal. No suspicious soft tissue calcifications. IMPRESSION: Multilevel spondylosis, most notably at the L5-S1 level. Reviewed by: ANDRADE Avina on 05/23/2021 4:52 PM PDT Approved by: Shawanda Choudhary MD on 05/23/2021 4:52 PM PDT Station ID: [id number]
== END 2021-05-23 07:10 | disposition home or self-care (01) ==
LOC: DI.N 07:09
PROVIDERS: ATTEND Family Medicine
DX: M47.26 Other spondylosis with radiculopathy, lumbar region (principal); M47.27 Other spondylosis with radiculopathy, lumbosacral region; M43.16 Spondylolisthesis, lumbar region; M51.16 Intervertebral disc disorders with radiculopathy, lumbar region; M51.37 Other intervertebral disc degeneration, lumbosacral region; M47.24 Other spondylosis with radiculopathy, thoracic region; M48.8X4 Other specified spondylopathies, thoracic region

== ENCOUNTER 2021-09-24 08:00 | Outpatient (CLI) | payer MEDICARE ==
[2021-09-24 18:00] LABS: BASOPHILS # (AUTO) 0.1 10^3/uL (0.0-0.1); BASOPHILS % (AUTO) 0.9 %; EOSINOPHILS # (AUTO) 0.1 10^3/uL (0.0-0.7); EOSINOPHILS % (AUTO) 1.4 %; HCT - HEMATOCRIT 43.1 % (42.0-52.0); HGB - HEMOGLOBIN 14.4 g/dL (14.0-18.0); LYMPHOCYTES # (AUTO) 1.9 10^3/uL (1.5-3.5); LYMPHOCYTES % (AUTO) 32.2 %; MEAN CORPUSCULAR HGB CONC 33.4 g/dL (32.0-36.0); MEAN CORPUSCULAR VOLUME 92.9 fL (80.0-94.0); MEAN PLATELET VOLUME 10.3 fL (7.4-11.4); MONOCYTES # (AUTO) 0.5 10^3/uL (0.0-1.0); MONOCYTES % (AUTO) 8.3 %; NEUTROPHILS # (AUTO) 3.3 10^3/uL (1.5-6.6); PLT - PLATELET COUNT 254 10^3/uL (130-450); RED BLOOD COUNT 4.64 10^6/uL (4.70-6.10); RED CELL DISTRIBUTION WIDTH 13.2 % (12.0-15.0); WHITE BLOOD COUNT 5.8 x10^3/uL (4.8-10.8)
[2021-09-24 18:37] LABS: ALBUMIN 4.2 g/dL (3.2-5.5); ALBUMIN/GLOBULIN RATIO 1.5 (1.0-2.2); ALKALINE PHOSPHATASE 35 IU/L (42-121); ALT ALANINE AMINOTRANSFERASE 20 IU/L (10-60); AST ASPARTATE AMINOTRANSFERASE 22 IU/L (10-42); BILIRUBIN,TOTAL 0.7 mg/dL (0.2-1.0); BUN - BLOOD UREA NITROGEN 13 mg/dL (6-20); CALCIUM 9.1 mg/dL (8.5-10.3); CARBON DIOXIDE - CO2 26 mmol/L (21-32); CHLORIDE 104 mmol/L (101-111); CREATININE 0.9 mg/dL (0.6-1.2); GFR - MDRD 81 (>89); GLUCOSE 97 mg/dL (70-100); POTASSIUM 4.4 mmol/L (3.5-5.0); SODIUM 137 mmol/L (135-145)
[2021-09-24 18:38] LABS: FREE T3 3.06 pg/mL (2.5-3.9); THYROID STIMULATING HORMONE 0.78 uIU/mL (0.34-5.60)
[2021-09-24 18:39] LABS: CRP - C-REACTIVE PROTEIN < 1.0 mg/dL (0-1.0); FREE T4 (FREE THYROXINE) 0.85 ng/dL (0.58-1.64)
== END 2021-09-24 23:59 | disposition home or self-care (01) ==
LOC: LAB.WCP 08:00
PROVIDERS: ATTEND Family Medicine
DX: R10.12 Left upper quadrant pain (principal); K57.30 Diverticulosis of large intestine without perforation or abscess without bleeding
CPT/HCPCS: 36415; 80053; 84439; 84443; 84481; 85025; 85651; 86140